=== PATIENT | male | born 1945 | race Caucasian/White ===

== ENCOUNTER 2022-07-05 09:31 | Outpatient (CLI) | payer MEDICARE, BC, SELFPAY ==
[2022-07-05 17:15] LABS: Chloride* 104 mmol/L (96-114); Potassium* 5.1 mmol/L (3.6-5.1); Sodium* 141 mmol/L (135-149)
[2022-07-05 17:18] LABS: Blood Urea Nitrogen* 25 mg/dL (7-30); Carbon Dioxide* 31 mmol/L (20-32); Cholesterol* 132 mg/dL (90-199); Creatinine* 1.1 mg/dL (0.5-1.5); Estimated Glomerular Filt Rate 69 ml/min; Glucose* 115 mg/dL (60-115); Triglycerides* 136 mg/dL (40-149)
[2022-07-05 17:19] LABS: Calcium* 10.9 mg/dL (8.4-10.6); HDL Cholesterol* 38 mg/dL (>=40); LDL Cholesterol Calculated 67 mg/dL (<100)
[2022-07-05 17:41] LABS: Creatinine Urine 86.6 mg/dL
[2022-07-05 17:44] LABS: Microalbumin Creatinine Ratio 10 mg/g (0-30); Microalbumin Urine 1 mg/dL
== END 2022-07-05 09:32 | disposition home or self-care (01) ==
PROVIDERS: PCP Family Medicine; Visit Provider Family Medicine
DX: E11.9 Type 2 diabetes mellitus without complications (principal); I10 Essential (primary) hypertension; E78.5 Hyperlipidemia, unspecified; E55.9 Vitamin D deficiency, unspecified
CPT/HCPCS: 80048; 80061; 82043; 82570

== ENCOUNTER 2023-07-10 08:46 | Outpatient (CLI) | payer MEDICARE, BC, SELFPAY ==
[2023-07-10 14:27] LABS: Microalbumin Urine 1 mg/dL
[2023-07-10 14:41] LABS: Creatinine Urine 106.5 mg/dL; Microalbumin Creatinine Ratio 0 mg/g (0-30)
== END 2023-07-10 08:47 | disposition home or self-care (01) ==
PROVIDERS: PCP Family Medicine; Visit Provider Family Medicine
DX: E11.9 Type 2 diabetes mellitus without complications (principal); E78.2 Mixed hyperlipidemia; I10 Essential (primary) hypertension; Z79.4 Long term (current) use of insulin
CPT/HCPCS: 80048; 80061; 82043; 82570; 84460

== ENCOUNTER 2024-05-28 11:39 | Outpatient (CLI) | payer MEDICARE, BC, SELFPAY | END 2024-05-28 11:40 | disposition home or self-care (01) | PROVIDERS: PCP Family Medicine; Visit Provider Family Medicine | DX: I10 Essential (primary) hypertension (principal); E78.2 Mixed hyperlipidemia; E11.9 Type 2 diabetes mellitus without complications; E55.9 Vitamin D deficiency, unspecified; R35.0 Frequency of micturition; Z79.4 Long term (current) use of insulin | CPT/HCPCS: 80048; 80061; 84460; 87086 ==